=== PATIENT | male | born 1990 | race African-American/Black ===

== ENCOUNTER 2019-03-15 15:31 | Emergency (ER) | payer OTHER, MEDICAID ==
--- NOTE | 2019-03-15 17:06 | RADIOLOGY REPORT (SQ) ---
EXAM DESCRIPTION: HAND RIGHT 3 VIEWS COMPLETED DATE/TIME: 03/15/2019 4:37 pm REASON FOR STUDY: bone tenderness 5th digit , football injury. COMPARISON: None. EXAM PARAMETERS: NUMBER OF VIEWS: Three views. TECHNIQUE: AP, lateral and oblique radiographic images acquired of the right hand. LIMITATIONS: None. FINDINGS: MINERALIZATION: Normal. BONES: No acute fracture or dislocation. SOFT TISSUES: No soft tissue swelling. No radiopaque foreign body. IMPRESSION: No radiographic evidence for acute fracture at the right hand. TECHNICAL DOCUMENTATION: JOB ID: [id number] [email or web address]- All Rights Reserved Reading location - IP/workstation name: [email or web address]
[2019-03-15] MEDS ORDERED: IBUPROFEN 800 MG TABLET PO ONE (17:30)
--- NOTE | 2019-03-15 17:52 | ER Document Report ---
HPI - HPI Time Seen by Provider: 03/15/19 17:30 Pain Level: 5 Context: Patient is a 28-year-old male who presents emergency department with chief complaint of right fifth finger pain. Patient reports he was playing football earlier around 1 PM when he jammed his right fifth finger. Patient reports there was a deformity and that a friend on scene popped his finger back into place. I did place his finger in a homemade finger immobilizing splint and tosha taped it to his fourth finger. Patient reports continued pain. - REPRODUCTIVE Reproductive: DENIES: : Past Medical History - General Information source: Patient - Social History Smoking Status: Never Smoker Chew tobacco use (# tins/day): No Frequency of alcohol use: None Drug Abuse: None Lives with: Family Family History: Reviewed & Not Pertinent Patient has suicidal ideation: No Patient has homicidal ideation: No - Past Medical History Cardiac Medical History: Reports: None Pulmonary Medical History: Reports: None EENT Medical History: Reports: None Neurological Medical History: Reports: Hx Seizures Endocrine Medical History: Reports: None Renal/ Medical History: Reports: None Malignancy Medical History: Reports None GI Medical History: Reports: None Musculoskeletal Medical History: Reports None Skin Medical History: Reports None Psychiatric Medical History: Reports: Hx Attention Deficit Hyperactivity Disorder Traumatic Medical History: Reports: None Infectious Medical History: Reports: None Surgical Hx: Negative Vertical Provider Document - CONSTITUTIONAL Agree With Documented VS: Yes Exam Limitations: No Limitations General Appearance: No Apparent Distress - INFECTION CONTROL TRAVEL OUTSIDE OF THE [place] IN LAST 30 DAYS: No - HEENT HEENT: Atraumatic, Normal ENT Exam, Normocephalic, PERRLA - NECK Neck: Normal Inspection - RESPIRATORY Respiratory: Breath Sounds Normal, No Respiratory Distress - CARDIOVASCULAR Cardiovascular: Regular Rate, Regular Rhythm - GI/ABDOMEN Gastrointestinal: Abdomen Soft, Abdomen Non-Tender, Normal Bowel Sounds - MUSCULOSKELETAL/EXTREMETIES Notes: Patient has tenderness to the DIP joint on the right fifth digit. There is slight edema without ecchymosis or erythema. Patient has less than 2-second cap refill on all digits of the right hand. Patient does have good flexion of the right fifth digit, and although he does have weaker extension of the right fifth digit he is able to perform this maneuver. Patient reports it is weaker patient reports extension induces severe pain. There is no obvious deformity. - NEURO Level of Consciousness: Awake, Alert, Appropriate - DERM Integumentary: Warm, Dry, No Rash Course - Re-evaluation Re-evalutation: 03/15/19 18:24 Patient's x-ray was negative for an acute fracture dislocation. Dressing was removed and patient was applied a right finger splint to the fifth digit. Carlotta ent instructed to ice, elevate and use ibuprofen as needed for pain. - Vital Signs Vital signs: Temp Pulse Resp BP Pulse Ox 98.0 F 68 14 122/64 100 03/15/19 16:21 03/15/19 15:34 03/15/19 16:21 03/15/19 15:34 03/15/19 16:21 - Diagnostic Test Radiology reviewed: Reports reviewed Radiology results interpreted by me: 03/15/19 18:24 Hand X-Ray 03/15/19 16:26 IMPRESSION: No radiographic evidence for acute fracture at the right hand. Discharge - Discharge Clinical Impression: Finger injury Qualifiers: Encounter type: initial encounter Laterality: right Qualified Code(s): S69.91XA - Unspecified injury of right wrist, hand and finger(s), initial encounter Condition: Stable Disposition: HOME, SELF-CARE Additional Instructions: *Today you are seen in the emergency department after obtaining a finger injury. We did obtain an x-ray which was negative for any acute fracture or dislocation. We have placed you in a finger splint. Please wear this as long as you are having pain but do remove it daily to perform finger range of motion exercises so your finger does not get stiff. Please take Tylenol or ibuprofen as needed for pain. Please keep the hand elevated and you may also ice it which can help with swelling. Prescriptions: Ibuprofen [Motrin 800 mg Tablet] 800 mg PO Q8H PRN #30 tab PRN Reason: Referrals: KE CONN DO [Primary Care Provider] - Follow up as needed
[2019-03-15 18:13] VITALS: BP 108/57
== END 2019-03-15 18:13 | disposition home or self-care (01) ==
LOC: ER 15:31
DX: S69.91XA Unspecified injury of right wrist, hand and finger(s), initial encounter (principal); M79.644 Pain in right finger(s); X58.XXXA Exposure to other specified factors, initial encounter; Y93.61 Activity, american tackle football
CPT/HCPCS: 99283; 73130; A9270